=== PATIENT | female | born 1990 | race Hispanic/Latino ===

== ENCOUNTER 2025-05-14 17:30 | Emergency (ER) | payer OTHER ==
[~2025-05-14] VITALS: Ht 160 cm; Wt 68.0 kg
[2025-05-14 18:31] VITALS: BP 123/83; TEMP 98.2; O2SAT 100
== END 2025-05-14 18:42 | disposition home or self-care (01) ==
LOC: M ED 17:30
DX: J02.9 Acute pharyngitis, unspecified (principal); B34.9 Viral infection, unspecified; Z91.010 Allergy to peanuts; Z91.018 Allergy to other foods

== ENCOUNTER 2025-06-20 18:31 | Emergency (ER) | payer OTHER ==
[~2025-06-20] VITALS: Ht 160 cm; Wt 69.0 kg
[2025-06-20 18:33] VITALS: TEMP 98.3
[2025-06-20 20:18] VITALS: BP 133/81; O2SAT 100
== END 2025-06-20 20:19 | disposition home or self-care (01) ==
LOC: M ED 18:31
DX: T63.441A Toxic effect of venom of bees, accidental (unintentional), initial encounter (principal); Z91.010 Allergy to peanuts; Z91.018 Allergy to other foods

== ENCOUNTER → 2025-08-09 | Outpatient (REF) ==
[~2025-08-09] MED LIST: IBUP600T42 PO; METH-1165 PO
[2025-08-13 13:51] LABS: HERPES ZOSTER, VARICELLA IgG 11.20 S/CO (>=1.00); RUBEOLA IgG ANTIBODY 27.60 AU/mL (>16.49)
== END ==
LOC: M LAB 09:26
PROVIDERS: ATTEND Family Medicine
DX: Z02.1 Encounter for pre-employment examination (principal)

== ENCOUNTER 2025-08-16 13:54 | Emergency (ER) | payer OTHER ==
[~2025-08-16] VITALS: Ht 160 cm; Wt 69.1 kg
[2025-08-16 13:57] VITALS: BP 132/80; TEMP 98.1; O2SAT 100
[2025-08-16] MEDS ORDERED: METH-1165 PO (16:22)
[2025-08-16] MEDS ORDERED: IBUP600T42 PO (16:22)
== END 2025-08-16 16:28 | disposition home or self-care (01) ==
LOC: M ED 13:54
DX: S13.4XXA Sprain of ligaments of cervical spine, initial encounter (principal); Y92.9 Unspecified place or not applicable; Y93.9 Activity, unspecified; Y99.9 Unspecified external cause status; V49.40XA Driver injured in collision with unspecified motor vehicles in traffic accident, initial encounter; E04.1 Nontoxic single thyroid nodule; Z79.1 Long term (current) use of non-steroidal anti-inflammatories (NSAID); Z79.899 Other long term (current) drug therapy